=== PATIENT | female | born 1970 | race Caucasian/White ===

== ENCOUNTER 2021-09-19 16:07 | Outpatient (REF) | payer OTHER, SELFPAY ==
--- NOTE | ~2021-09-19 | MM_ITS ---
EXAMINATION: MM SCREENING DIGITAL BREAST TOMOSYNTHESIS, BILATERAL CLINICAL INFORMATION: Screening. Asymptomatic. The lifetime risk of breast cancer based on the Tyrer-Cuzick Model is 17%. COMPARISON: Mammography: 12/12/2018, 12/10/2017, 11/15/2016 TECHNIQUE: Digital breast tomosynthesis is performed in both the craniocaudal and mediolateral oblique views along with computer-aided detection (CAD). Synthesized 2D images are generated from the tomosynthesis. Additional left MLO view is provided. FINDINGS: There are scattered areas of fibroglandular density (ACR BI-RADS breast composition Category b). There is fine fibronodular parenchymal pattern with scattered stable asymmetries similar to prior exams. There is no developing density or interval mass or architectural abnormality. Mild bilateral breast asymmetry, larger on left, is a chronic finding. The axilla and skin contours are unremarkable. There are no significant changes. MM/MM tomosynthesis screening BI IMPRESSION: No mammographic evidence of malignancy. ASSESSMENT: BI-RADS 2: Benign RECOMMENDATION: Routine annual mammography screening. This patient's information was entered into a reminder system with a target due date for their next mammogram.
== END 2021-09-19 16:08 | disposition home or self-care (01) ==
LOC: HO.MAMMO 16:07
PROVIDERS: Visit Provider Internal Medicine
DX: Z12.31 Encounter for screening mammogram for malignant neoplasm of breast (principal)
CPT/HCPCS: 77063; 77067

== ENCOUNTER 2021-09-29 08:03 | Outpatient (REF) | payer OTHER, SELFPAY ==
[2021-09-29 08:19] LABS: MANUAL DIFF FLAG NO
[2021-09-29 09:02] LABS: Basophils Absolute Auto 0.1 X10*3/uL (0.0-0.2); Basophils Percent Auto 0.7 % (0-2); Eosinophils Absolute Auto 0.1 X10*3/uL (0.0-0.4); Eosinophils Percent Auto 1.7 % (0-4); Hematocrit 41.4 % (37.0-47.0); Hemoglobin 13.5 g/dl (12.0-16.0); Imm Gran Abs Auto 0.02 X10*3/uL (0.00-0.03); Imm Gran Pct Auto 0.3 % (0.0-0.4); Lymphocytes Absolute Auto 1.9 X10*3/uL (1.2-4.9); Lymphocytes Percent Auto 26.6 % (20-40); Mean Corpuscular HGB Conc 32.6 g/dl (31.0-35.0); Mean Corpuscular Hemoglobin 29.5 pg (27.0-33.0); Mean Corpuscular Volume 90.4 fL (80.0-98.0); Mean Platelet Volume 10.9 fL (9.4-12.3); Monocytes Absolute Auto 0.5 X10*3/uL (0.1-1.2); Monocytes Percent Auto 7.1 % (2-11); Neutrophils Absolute Auto 4.6 x10*3/uL (2.0-8.3); Neutrophils Percent Auto 63.6 % (45-73); Platelet Count 293 X10*3/uL (160-400); Red Blood Count 4.58 X10*6/uL (4.20-5.50); Red Cell Distribution Width 13.2 % (11.0-16.0); White Blood Count 7.2 X10*3/uL (4.8-10.8)
[2021-09-29 09:40] LABS: Alanine Aminotransferase 13 U/L (0-31); Albumin Level 4.2 g/dL (3.5-5.0); Alkaline Phosphatase 52 U/L (39-117); Anion Gap 14 (12-20); Aspartate Amino Transferase 15 U/L (5-31); Bilirubin Total 0.4 mg/dL (0.0-1.0); Blood Urea Nitrogen 18 mg/dL (9-16); Calcium 9.1 mg/dL (8.4-10.2); Carbon Dioxide 24 mmol/L (22-29); Chloride 108 mmol/L (96-108); Cholesterol 245 mg/dL; Estimated Glomerular Filt Rate > 60; Glucose Fasting 95 mg/dL (60-99); HDL Cholesterol 57 mg/dL; LDL Cholesterol Calculated 166 mg/dl; Potassium 4.8 mmol/L (3.3-5.1); Sodium 141 mmol/L (135-145); Triglycerides 113 mg/dL
== END 2021-09-29 08:04 | disposition home or self-care (01) ==
LOC: HO.LAB 08:03
PROVIDERS: PCP Internal Medicine; Visit Provider Internal Medicine
DX: Z00.00 Encounter for general adult medical examination without abnormal findings (principal)
CPT/HCPCS: 36415; 80053; 80061; 85025

== ENCOUNTER 2022-02-20 08:14 | Outpatient (REF) | payer OTHER, SELFPAY ==
[2022-02-20 09:14] LABS: Alanine Aminotransferase 10 U/L (0-31); Aspartate Amino Transferase 13 U/L (5-31); Cholesterol 212 mg/dL; HDL Cholesterol 52 mg/dL; LDL Cholesterol Calculated 138 mg/dl; Triglycerides 113 mg/dL
== END 2022-02-20 08:15 | disposition home or self-care (01) ==
LOC: HO.LAB 08:14
PROVIDERS: Visit Provider Internal Medicine
DX: E78.00 Pure hypercholesterolemia, unspecified (principal)
CPT/HCPCS: 36415; 80061; 84450; 84460

== ENCOUNTER 2022-08-17 07:17 | Outpatient (REF) | payer OTHER, SELFPAY ==
[2022-08-17 08:02] LABS: Cholesterol 232 mg/dL; HDL Cholesterol 58 mg/dL; LDL Cholesterol Calculated 152 mg/dl; Triglycerides 113 mg/dL
== END 2022-08-17 07:18 | disposition home or self-care (01) ==
LOC: HO.LAB 07:17
PROVIDERS: PCP Internal Medicine; Visit Provider Internal Medicine
DX: E78.00 Pure hypercholesterolemia, unspecified (principal)
CPT/HCPCS: 36415; 80061

== ENCOUNTER 2022-09-25 16:09 | Outpatient (REF) | payer OTHER, SELFPAY ==
--- NOTE | ~2022-09-25 | MM_ITS ---
EXAMINATION: MM SCREENING DIGITAL BREAST TOMOSYNTHESIS, BILATERAL CLINICAL INFORMATION: Screening. Asymptomatic. The lifetime risk of breast cancer based on the Tyrer-Cuzick Model is 16%. COMPARISON: Mammography: 09/19/2021, 12/12/2018, 12/10/2017, 11/15/2016 TECHNIQUE: Digital breast tomosynthesis is performed in both the craniocaudal and mediolateral oblique views along with computer-aided detection (CAD). Synthesized 2D images are generated from the tomosynthesis. FINDINGS: There are scattered areas of fibroglandular density (ACR BI-RADS breast composition Category b). There is a fibronodular parenchymal pattern with scattered bilateral parenchymal asymmetries similar to prior studies. There are no abnormal calcifications. There is some chronic benign mild duct ectasia anterior left breast. The bilateral axilla and skin contours are unremarkable. Right breast shows no significant mass or architectural abnormality or developing density. Left MLO view has asymmetric density central breast along posterior nipple line which is believed to represent probable summation artifact on tomography. Patient will be recalled to confirm with additional views. MM/MM tomosynthesis screening BI IMPRESSION: Left: -Asymmetric density mid breast on MLO view, likely incidental summation artifact. Right: -No mammographic evidence of malignancy. ASSESSMENT: BI-RADS 0: Incomplete - Need Additional Imaging Evaluation RECOMMENDATION: 1. Additional views left breast (spot MLO, standard ML). 2. Targeted ultrasound if warranted after review of the additional views. 3. Radiology department staff will contact the patient for additional imaging. This patient's information was entered into a reminder system with a target due date for their next mammogram.
== END 2022-09-25 16:10 | disposition home or self-care (01) ==
LOC: HO.MAMMO 16:09
PROVIDERS: Visit Provider Internal Medicine
DX: Z12.31 Encounter for screening mammogram for malignant neoplasm of breast (principal)
CPT/HCPCS: 77063; 77067

== ENCOUNTER 2022-09-29 08:34 | Outpatient (REF) | payer OTHER, SELFPAY ==
--- NOTE | ~2022-09-29 | MM_ITS ---
EXAMINATION: MM DIAGNOSTIC DIGITAL BREAST TOMOSYNTHESIS, LEFT US BREAST, TARGETED, LEFT CLINICAL INFORMATION: Left breast density. COMPARISON: Mammography: 09/25/2022 and studies dating back to 11/03/2015. TECHNIQUE: Digital breast tomosynthesis is performed. 2D images are generated from the tomosynthesis. The following views are obtained: Spot compression views in mediolateral oblique projection and 90 degree mediolateral views. Targeted left breast ultrasound. FINDINGS: MAMMOGRAM: There are scattered areas of fibroglandular density (ACR BI-RADS breast composition Category b). The additional views compress out and 90 degree mediolateral view changes the appearance a little with no definite spiculated mass identified. ULTRASOUND: Targeted ultrasound evaluation of the left breast did not demonstrate any abnormal cystic or solid masses. No region of abnormal distal sound shadowing or edematous change within the parenchyma is identified. Results are discussed with the patient at time of visit. MM/MM tomosynthesis added views L IMPRESSION: Additional mammographic imaging demonstrates improvement in appearance of left breast density which appears to be related to superimposition of fibroglandular tissue. No ultrasound abnormality appreciated. Recommend 6 month follow-up left breast mammography to ensure stability. ASSESSMENT: BI-RADS 3: Probably Benign RECOMMENDATION: Diagnostic mammography in 6 months. This patient's information was entered into a reminder system with a target due date for their next mammogram.
== END 2022-09-29 08:35 | disposition home or self-care (01) ==
LOC: HO.MAMMO 08:34
PROVIDERS: Visit Provider Internal Medicine
DX: R92.2 Inconclusive mammogram (principal)
CPT/HCPCS: 76642; 77061; 77065

== ENCOUNTER 2023-03-30 14:20 | Outpatient (REF) | payer OTHER, SELFPAY | END 2023-03-30 14:21 | disposition home or self-care (01) | LOC: HO.MAMMO 14:20 | PROVIDERS: PCP Internal Medicine; Visit Provider Internal Medicine | DX: R92.2 Inconclusive mammogram (principal) | CPT/HCPCS: 77061; 77065 ==

== ENCOUNTER → 2023-03-30 14:30 | Outpatient (BNV) | payer OTHER, SELFPAY | PROVIDERS: PCP Internal Medicine; Visit Provider Radiology Diagnostic Radiology | DX: R92.322 Mammographic fibroglandular density, left breast (principal) | CPT/HCPCS: 77061; 77065 ==

== ENCOUNTER 2023-09-27 15:35 | Outpatient (REF) | payer OTHER, SELFPAY ==
--- NOTE | ~2023-09-27 | MM_ITS ---
EXAMINATION: MM SCREENING DIGITAL BREAST TOMOSYNTHESIS, BILATERAL CLINICAL INFORMATION: Screening. Asymptomatic. COMPARISON: Mammography: 03/30/2023, 09/29/2022, 09/25/2022, 09/19/2021, 12/12/2018. Ultrasound left breast 09/29/2022. TECHNIQUE: Digital breast tomosynthesis is performed in both the craniocaudal and mediolateral oblique views along with computer-aided detection (CAD). Synthesized 2D images are generated from the tomosynthesis. FINDINGS: There are scattered areas of fibroglandular density (ACR BI-RADS breast composition Category b). There are no suspicious masses, suspicious grouped calcifications, or areas of architectural distortion in either breast. There is fine fibronodular parenchymal pattern with scattered stable asymmetries similar to numerous prior exams. There are no skin or axillary abnormalities. MM/MM tomosynthesis screening BI IMPRESSION: No mammographic evidence of malignancy. No changes. ASSESSMENT: BI-RADS BI-RADS 2 - Benign Findings. RECOMMENDATION: Routine annual mammography screening. 1 year F/U This examination should not preclude the clinical evaluation of a suspicious palpable abnormality. This patient's information was entered into a reminder system with a target due date for their next mammogram.
== END 2023-09-27 15:36 | disposition home or self-care (01) ==
LOC: HO.MAMMO 15:35
PROVIDERS: PCP Internal Medicine; Visit Provider Internal Medicine
DX: Z12.31 Encounter for screening mammogram for malignant neoplasm of breast (principal)
CPT/HCPCS: 77063; 77067

== ENCOUNTER → 2023-09-27 16:00 | Outpatient (BNV) | payer OTHER, SELFPAY | PROVIDERS: PCP Internal Medicine; Visit Provider Radiology Diagnostic Radiology | DX: Z12.31 Encounter for screening mammogram for malignant neoplasm of breast (principal) | CPT/HCPCS: 77063; 77067 ==

== ENCOUNTER 2023-12-22 10:57 | Emergency (ER) | payer OTHER, SELFPAY ==
--- NOTE | ~2023-12-22 | CT_ITS ---
EXAMINATION: CT abdomen pelvis wo IV con CLINICAL INFORMATION: Reason for Exam lower abd pain, r/o perforated viscus, diverticult COMPARISON: Prior CT scan from 2019 TECHNIQUE: Multidetector volumetric imaging was performed from the superior aspect of the liver through the pubic symphysis noncontrast CT Sagittal and coronal reformatted images were obtained on the technologist's workstation. This CT examination was performed using dose optimization techniques as appropriate, variously including the following: *Automated exposure control *Adjustment of mA and/or kV according to patient size (this includes techniques or standardized protocols for targeted exams where dose is matched to indication/reason for exam; i.e. extremities or head) *Use of iterative reconstruction technique DLP: 941 mGy-cm FINDINGS: LOWER THORAX: Included lung bases are clear. HEPATOBILIARY: Heterogeneous liver texture, hypodense area in the posterior segment right lobe 7 x 4.8 cm, not well evaluated on this noncontrast CT newly found on today's exam, although could be asymmetric fat deposition, cannot rule out liver mass, would require correlation with follow-up advanced imaging. GALLBLADDER: Gallbladder unremarkable. SPLEEN: Spleen is normal in size. PANCREAS: No focal mass or ductal dilatation. STOMACH AND GASTROINTESTINAL TRACT: Stomach is grossly unremarkable. There is fat stranding around the sigmoid colon left lower quadrants with underlying diverticula, this pattern is most consistent with acute diverticulitis. No CT evidence of complication, no abscess,. No CT evidence of appendicitis. ADRENALS: No adrenal nodules. KIDNEYS/URETERS: There is a 3 mm nonobstructing stone left kidney. No hydronephrosis. URINARY BLADDER: Partially decompressed. PELVIC VISCERA: Unremarkable PERITONEUM: No free air or fluid. LYMPH NODES: No lymphadenopathy. VASCULAR:Abdominal aorta normal in size, no aneurysm found. BONES, ABDOMINAL WALL AND SOFT TISSUES: Age-appropriate changes of the spine and skeletal system, no destructive osteolytic or osteosclerotic bone lesion found CT/CT abdomen pelvis wo IV con IMPRESSION: 1. Acute diverticulitis. There is fat stranding around the sigmoid colon left lower quadrant with underlying diverticula, this pattern is most consistent with acute diverticulitis. No CT evidence of complication, no abscess. 2. Heterogeneous liver texture, newly found hypodense area in the posterior segment right lobe 7 x 4.8 cm, not well evaluated on this noncontrast CT, although could be asymmetric fat deposition, cannot rule out liver mass, would require correlation with follow-up advanced imaging, ultrasound and/or MRI abdomen pre and postcontrast recommended. 3. Nonobstructing 3 mm stone left kidney.
[2023-12-22 11:25] VITALS: BP 162/74; PULSE 69; RESP 16; TEMP 36.5; O2SAT 96; BMI 43.2
--- NOTE | 2023-12-22 11:25 | ED.ABDPAIN ---
HPI - Abdominal Pain General Chief Complaint: Abdominal Pain Stated Complaint: diverticulitis flare up Time Seen by Provider: 12/22/23 11:24 Source: patient Mode of arrival: ambulatory Limitations: no limitations History of Present Illness ED Provider: DR. Ellison HPI narrative: 53-year-old female came in for evaluation lower abdominal pain started 2 days ago. 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 Related Data Previous Rx's ?Medication ?Instructions ?Recorded amoxicillin 875 mg-potassium 1 tab PO BID #20 tabs 12/22/23 clavulanate 125 mg tablet Allergies Allergy/AdvReac Type Severity Reaction Status Date / Time No Known Allergies Allergy Verified 12/22/23 11:26 [No Known Allergies*] Review of Systems Review of Systems All other systems are reviewed and are negative Constitutional: Reports as per HPI and Reports no additional constitutional complaints Eyes: Reports as per HPI and Reports no additional eye complaints Reports system reviewed and no additional complaints, except as documented Cardiovascular: Reports as per HPI and Reports no additional cardiovascular complaints Respiratory: Reports as per HPI and Reports no additional respiratory complaints Gastrointestinal: Reports as per HPI and Reports no additional gastrointestinal complaints Genitourinary: Reports no additional female genitourinary complaints Musculoskeletal: Reports no additional musculoskeletal complaints Skin/Breast: Reports system reviewed and no additional complaints, except as docu Psychiatric: Reports no additional psychiatric complaints Endocrine: Reports no additional endocrine complaints Hematologic/Lymphatic: Reports no additional hematologic/lymphatic complaints Allergic/Immunologic: Reports no additional allergic/immunologic complaints Reports system reviewed and no additional complaints, except as documented and Reports Abnormal speech present PMFSH Social History Social History Advance Directives: No Advance Directives Information Provided: Yes Physical Exam ED Vital Signs: Vital Signs - 24 hr 12/22/23 11:25 12/22/23 12:23 Temperature 97.7 F 98.6 F Pulse Rate 69 60 Respiratory Rate 16 17 Blood Pressure 162/74 H 127/82 Pulse Oximetry 96 98 Oxygen Delivery Method Room Air BMI result Body Mass Index 43.2 Vital signs have been reviewed and appear to be correct. Blood pressure elevated. Heart rate normal. Respiratory rate normal. Temperature normal. Oxygen saturation normal. Appearance: Alert. Oriented X3. No acute distress. Head: Normal external exam. Normocephalic. Atraumatic. No Perez signs noted. No raccoon eyes noted Eyes: PERRLA. EOMI. Conjunctiva and sclera normal. Eyelids normal. ENT: TM's Normal. Pharynx normal. Uvula midline. Moist mucous membranes. No trismus noted. No drooling noted. No muffled voice noted. Neck: Normal inspection. Neck supple. FROM. No adenopathy. Thyroid Normal. No meningeal signs. No neck mass noted. CVS: Normal heart rate and rhythm. Heart sound normal. No murmurs noted. Pulses normal throughout. Respiratory: No respiratory distress. Painless inspiration. Breath sounds normal. No wheezes/rales/rhonchi noted. Chest nontender. No accessory muscle usage noted or decreased air movement noted. Abdomen: Soft, mild lower abdominal tenderness, no guarding, no rebound tenderness, right side more than left. No organomegaly noted. No visible injury noted. Back: No CVA tenderness. Full range of motion noted. Skin: Skin warm and dry. Normal skin color. Normal skin turgor. No rashes/lesions/lacerations noted. Extremities: No lower extremity edema. Extremities exhibit normal range of motion. Extremities nontender. Neuro: Oriented X 3. Cranial nerve exam: II-XII are grossly intact No motor deficit. No sensory deficit. Reflexes normal. Course Reevaluation(s) Reevaluation #1: Abdominal pain normal WBCs CT reveals sigmoid diverticulitis, incidental right hepatic mass that needs further evaluation by PCP the findings were discussed with the patient. Start on Augmentin for outpatient treatment. Diverticular disease diet was provided to the patient. Time: 13:00 Medical Decision Making Differential Diagnosis Differential Diagnoses: The differential diagnosis associated with the presentation includes (Pancreatitis, cholecystitis, colitis, diverticulitis, acute appendicitis, gastritis, pyelonephritis, , electrolyte derangement, severe anemia.) Admission/Observation Consideration of admission/observation: Escalation of care including admission/observation considered Lab Data MDM Lab Attestation statement: I reviewed the patient's lab results. 12/22/23 11:36 12/22/23 11:36 Labs: Lab Results 12/22/23 Range/Units 11:36 WBC 9.2 (4.8-10.8) X10*3/uL RBC 4.58 (4.20-5.50) X10*6/uL Hgb 13.5 (12.0-16.0) g/dl Hct 40.3 (37.0-47.0) % MCV 88.0 (80.0-98.0) fL MCH 29.5 (27.0-33.0) pg MCHC 33.5 (31.0-35.0) g/dl RDW 13.1 (11.0-16.0) % Plt Count 282 (160-400) X10*3/uL MPV 10.4 (9.4-12.3) fL Immature Gran % (Auto) 0.2 (0.0-0.4) % Neut % (Auto) 58.3 (45-73) % Lymph % (Auto) 31.7 (20-40) % Zapata % (Auto) 6.3 (2-11) % Eos % (Auto) 3.0 (0-4) % Baso % (Auto) 0.5 (0-2) % Lymph # (Auto) 2.9 (1.2-4.9) X10*3/uL Zapata # (Auto) 0.6 (0.1-1.2) X10*3/uL Eos # (Auto) 0.3 (0.0-0.4) X10*3/uL Baso # (Auto) 0.1 (0.0-0.2) X10*3/uL Abs Immat Gran (auto) 0.02 (0.00-0.03) X10*3/uL Absolute Neuts (auto) 5.4 (2.0-8.3) x10*3/uL Absolute Nucleated RBC 0.000 (0.0-0.012) X10*3/uL Nucleated RBC % (auto) 0.0 (0.0-0.2) /100WBC Sodium 140 (135-145) mmol/L Potassium 4.3 (3.3-5.1) mmol/L Chloride 106 (96-108) mmol/L Carbon Dioxide 25 (22-29) mmol/L Anion Gap 13 (12-20) BUN 16 (9-16) mg/dL Creatinine 0.74 (0.5-1.4) mg/dL Estim Creat Clear Calc 119.4 Estimated GFR > 60 Random Glucose 96 (60-115) mg/dL Calcium 9.6 (8.4-10.2) mg/dL Total Bilirubin 0.3 (0.0-1.0) mg/dL Direct Bilirubin 0.1 (0.0-0.5) mg/dL AST 17 (5-31) U/L ALT 15 (0-31) U/L Alkaline Phosphatase 56 (39-117) U/L Total Protein 7.3 (6.5-8.0) g/dL Albumin 4.1 (3.5-5.0) g/dL Lipase 18 (8-78) U/L Independent Interpretation I performed an independent interpretation of an: CT Scan (Abdomen pelvis:1. Acute diverticulitis. There is fat stranding around the sigmoid colon left lower quadrant with underlying diverticula, this pattern is most consistent with acute diverticulitis. No CT evidence of complication, no abscess. 2. Heterogeneous liver texture, newly found hypodense ar) Radiology Impression Discussion of test interpretation with radiology: I have reviewed the radiologist's reading. Chronic Conditions Patient?s care impacted by: Other (Diverticular disease) Medications Administered Discontinued Medications Generic Name Dose Route Start Last Admin Trade Name Freq PRN Reason Stop Dose Admin Sodium Chloride 1,000 mls @ 999 mls/hr 12/22/23 11:29 12/22/23 11:54 Ns IV 12/22/23 12:29 999 mls/hr .Q1H1M ONE Administration Piperacillin Sod/Tazobactam 100 mls @ 200 mls/hr 12/22/23 11:42 12/22/23 12:24 Sod 4.5 gm/ Sodium Chloride IV 12/22/23 12:11 200 mls/hr ONCE ONE Administration Discharge Plan Discharge Clinical Impression: Diverticulitis, Liver mass, right lobe, Liver mass Patient Disposition: Home, Self-Care Instructions: Diverticulitis (ED), Diverticulitis Diet (ED) Additional Instructions: Need to follow-up with PCP for further evaluation of incidental mass found on your right side of your liver you will need outpatient ultrasound and abdominal MRI. Take ibuprofen 200 mg every 6 hours if needed for pain. Prescriptions: New amoxicillin-pot clavulanate 875-125 mg tablet 1 tab PO BID Qty: 20 0RF Referrals: Mikael Valencia MD [Primary Care Provider] - Print Language: Frisian
[2023-12-22 11:42] LABS: MANUAL DIFF FLAG NO
[2023-12-22 11:44] LABS: Basophils Absolute Auto 0.1 X10*3/uL (0.0-0.2); Basophils Percent Auto 0.5 % (0-2); Eosinophils Absolute Auto 0.3 X10*3/uL (0.0-0.4); Hematocrit 40.3 % (37.0-47.0); Hemoglobin 13.5 g/dl (12.0-16.0); Imm Gran Abs Auto 0.02 X10*3/uL (0.00-0.03); Imm Gran Pct Auto 0.2 % (0.0-0.4); Lymphocytes Absolute Auto 2.9 X10*3/uL (1.2-4.9); Lymphocytes Percent Auto 31.7 % (20-40); Mean Corpuscular HGB Conc 33.5 g/dl (31.0-35.0); Mean Corpuscular Hemoglobin 29.5 pg (27.0-33.0); Mean Platelet Volume 10.4 fL (9.4-12.3); Monocytes Absolute Auto 0.6 X10*3/uL (0.1-1.2); Monocytes Percent Auto 6.3 % (2-11); Neutrophils Absolute Auto 5.4 x10*3/uL (2.0-8.3); Neutrophils Percent Auto 58.3 % (45-73); Platelet Count 282 X10*3/uL (160-400); Red Blood Count 4.58 X10*6/uL (4.20-5.50); Red Cell Distribution Width 13.1 % (11.0-16.0); White Blood Count 9.2 X10*3/uL (4.8-10.8)
[2023-12-22] MEDS: 0.9 % Sodium Chloride 1,000 ML 999 ML IV (11:54)
[2023-12-22 12:02] LABS: Alanine Aminotransferase 15 U/L (0-31); Albumin Level 4.1 g/dL (3.5-5.0); Alkaline Phosphatase 56 U/L (39-117); Anion Gap 13 (12-20); Aspartate Amino Transferase 17 U/L (5-31); Bilirubin Direct 0.1 mg/dL (0.0-0.5); Bilirubin Total 0.3 mg/dL (0.0-1.0); Blood Urea Nitrogen 16 mg/dL (9-16); Calcium 9.6 mg/dL (8.4-10.2); Carbon Dioxide 25 mmol/L (22-29); Chloride 106 mmol/L (96-108); Creatinine Clr Calc Pharmacy 119.4; Estimated Glomerular Filt Rate > 60; Glucose Random 96 mg/dL (60-115); Lipase 18 U/L (8-78); Potassium 4.3 mmol/L (3.3-5.1); Sodium 140 mmol/L (135-145); Total Protein 7.3 g/dL (6.5-8.0)
[2023-12-22 12:23] VITALS: BP 127/82; PULSE 60; RESP 17; TEMP 37; O2SAT 98
[2023-12-22] MEDS: Piperacillin Sodium/Tazobactam 4.5 GM in 0.9 % Sodium Chloride 100 ML IV (12:24)
[2023-12-22 13:43] VITALS: BP 127/77; PULSE 55; RESP 16; TEMP 36.8; O2SAT 99
[2023-12-22 13:52] VITALS: BP 127/77; PULSE 55; RESP 16; TEMP 36.8; O2SAT 99
== END 2023-12-22 13:53 | disposition home or self-care (01) ==
PROVIDERS: Emergency Provider Emergency Medicine; PCP Internal Medicine
DX: K57.32 Diverticulitis of large intestine without perforation or abscess without bleeding (principal); R10.30 Lower abdominal pain, unspecified; R16.0 Hepatomegaly, not elsewhere classified
CPT/HCPCS: 36415; 74176; 80048; 80076; 83690; 85025; 87040; 96361; 96365; 96366; 99283; 99284; J2543

== ENCOUNTER 2023-12-31 07:22 | Outpatient (REF) | payer OTHER, SELFPAY ==
[2023-12-31 07:33] LABS: MANUAL DIFF FLAG NO
[2023-12-31 07:41] LABS: Basophils Absolute Auto 0.1 X10*3/uL (0.0-0.2); Basophils Percent Auto 0.7 % (0-2); Eosinophils Absolute Auto 0.3 X10*3/uL (0.0-0.4); Eosinophils Percent Auto 3.5 % (0-4); Hematocrit 41.4 % (37.0-47.0); Hemoglobin 13.8 g/dl (12.0-16.0); Imm Gran Abs Auto 0.02 X10*3/uL (0.00-0.03); Imm Gran Pct Auto 0.3 % (0.0-0.4); Lymphocytes Absolute Auto 3.1 X10*3/uL (1.2-4.9); Lymphocytes Percent Auto 41.6 % (20-40); Mean Corpuscular HGB Conc 33.3 g/dl (31.0-35.0); Mean Corpuscular Hemoglobin 29.2 pg (27.0-33.0); Mean Corpuscular Volume 87.7 fL (80.0-98.0); Mean Platelet Volume 10.2 fL (9.4-12.3); Monocytes Absolute Auto 0.4 X10*3/uL (0.1-1.2); Neutrophils Absolute Auto 3.5 x10*3/uL (2.0-8.3); Neutrophils Percent Auto 47.9 % (45-73); Platelet Count 319 X10*3/uL (160-400); Red Blood Count 4.72 X10*6/uL (4.20-5.50); Red Cell Distribution Width 12.8 % (11.0-16.0); White Blood Count 7.4 X10*3/uL (4.8-10.8)
[2023-12-31 08:00] LABS: Alanine Aminotransferase 17 U/L (0-31); Albumin Level 4.2 g/dL (3.5-5.0); Alkaline Phosphatase 57 U/L (39-117); Anion Gap 12 (12-20); Aspartate Amino Transferase 17 U/L (5-31); Bilirubin Total 0.3 mg/dL (0.0-1.0); Blood Urea Nitrogen 15 mg/dL (9-16); Calcium 9.4 mg/dL (8.4-10.2); Carbon Dioxide 25 mmol/L (22-29); Chloride 108 mmol/L (96-108); Cholesterol 253 mg/dL (<200); Estimated Glomerular Filt Rate > 60; Glucose Fasting 105 mg/dL (60-99); HDL Cholesterol 52 mg/dL (>40); LDL Cholesterol Calculated 167 mg/dL (<100); Sodium 141 mmol/L (135-145); Total Protein 7.3 g/dL (6.5-8.0); Triglycerides 173 mg/dL (<150)
[2023-12-31 09:15] LABS: Appearance Urine Cloudy; Color Urine Yellow; Glucose Urine UA Negative (Negative); Leukocyte Esterase Urine Negative (Negative); Nitrite Urine Negative (Negative); Specific Gravity - Urine 1.025 (1.005-1.025); Urine Blood Negative (Negative); Urine Ketones Negative (Negative); Urine Protein Negative (Neg-Trace)
== END 2023-12-31 07:23 | disposition home or self-care (01) ==
LOC: HO.LAB 07:22
PROVIDERS: PCP Internal Medicine; Visit Provider Internal Medicine
DX: E78.00 Pure hypercholesterolemia, unspecified (principal); K21.9 Gastro-esophageal reflux disease without esophagitis; Z87.442 Personal history of urinary calculi
CPT/HCPCS: 36415; 80053; 80061; 81003; 85025

== ENCOUNTER 2024-01-04 09:25 | Outpatient (AMB) | payer OTHER, SELFPAY ==
--- NOTE | 2024-01-04 09:36 | MHC.OFFVIS ---
Vital Signs 01/04/24 09:40 Height 5 ft 6 in Weight 265 lb BMI 42.8 BP 135/72 Blood Pressure Location Lt brachial Position Sitting Pulse 80 Intake Visit Reasons: Colonoscopy Screening Intake Note: Patient new consult for Diverticulitis and pre Colonoscopy screening. Patient cc: acid refllex and burning sensation. [employer] Required: No Accompanied by: Self / Same As Patient Allergies No Known Allergies [No Known Allergies*] Allergy (Verified 01/04/24 09:36) Medication List - Last Reconciled 01/04/24 by Henna Flood, [facility]- amoxicillin-pot clavulanate 875-125 mg 1 tab PO BID atorvastatin 20 mg PO BEDTIME omeprazole 20 mg PO DAILY HPI HPI Colonoscopy Screening: Details: 53 year old? female here today for pre colonoscopy screening.? Patient was sent to us by her PCP.? This is her first colonoscopy screening.? Patient denies any gastrointestinal symptoms in the past or at present.? However patient does admit to acid reflux and takes omeprazole almost every day. Recently patient was seen in the ER for diverticulitis. Patient denies any abdominal pain or discomfort today. Reports that she is moving his bowels well without any issues. During her visit in the ER incidental finding of hypodense mass in the liver. Patient is being sent for MRI and is waiting to book the appointment. Family history of CRC, maternal grandmother was diagnosed with rectal cancer.? Denies history of difficulty with sedation or anesthesia in the past.? Negative for history of sleep apnea.? Denies any history of cardiac, renal, pulmonary, or hepatic disease.?? No history of infectious? diseases like hepatitis A, B, C, HIV or tuberculosis.? Patient is not on any anticoagulation PFSH Surgical History (Updated 01/04/24 @ 09:38 by Kelli Cohen) Hx of knee surgery Hx of section Social History (Updated 01/04/24 @ 09:37 by Kelli Cohen) Household Members: Family Alcohol intake: current Alcohol intake frequency: holidays/special occasions only Patient Tobacco Use Status: Never used Tobacco Review of Systems Const Denies weight gain and Denies weight loss ENT Reports no additional complaints, Denies dysphagia and Denies odynophagia Card Reports no additional complaints Resp Reports no additional complaints GI Denies abdominal pain, Denies belching, Denies melena, Denies bloating, Denies change in bowel habits, Denies dysphagia, Denies excessive flatus, Denies dyspepsia, Denies heartburn, Denies diarrhea, Denies loose stools, Denies nausea, Denies odynophagia and Denies vomiting Musc Reports no additional complaints Neuro Reports no additional complaints Psych Reports no additional complaints Endo Reports no additional complaints Physical Exam Const General: healthy appearing, no acute distress and well developed Nutritional Appearance: well nourished Orientation/consciousness: patient oriented x3 Resp Effort & Inspection: normal respiratory effort, able to speak in complete sentences, no tracheal deviation and symmetric chest movement Auscultation: clear to auscultation bilaterally Cardio Rate: regular rate GI Inspection: Yes normal to inspection and No distended Palpation (GI): Soft to palpation, not firm, nontender and No hepatosplenomegaly present Auscultation: normal bowel sounds General: Yes no CVA tenderness Back/Spine/Pelvis Back: no CVA tenderness Skin General skin exam: elasticity normal, turgor normal and dry skin Neuro General: patient oriented x3 Psych Appearance: grossly normal Mental Status: mental status grossly normal Assessment & Plan Assessment & Plan (1) Screen for colon cancer: Code(s): Z12.11 - Encounter for screening for malignant neoplasm of colon (2) GERD (gastroesophageal reflux disease): Code(s): K21.9 - Gastro-esophageal reflux disease without esophagitis Qualifiers: Esophagitis presence: esophagitis presence not specified Qualified Code(s): K21.9 - Gastro-esophageal reflux disease without esophagitis (3) History of diverticulitis of colon: Code(s): Z87.19 - Personal history of other diseases of the digestive system Plan Patient denies any cardiac or respiratory symptoms.? Patient will continue with omeprazole. Avoid dietary triggers late night snacking. Staying upright for minimum 3 hours after meals discussed with patient. Patient will be sent for upper endoscopy to rule out gastritis, duodenitis, esophagitis, gastric or peptic ulcer, Cabrera's. Denies any issues with anesthesia in the past.? Denies any history of sleep apnea.? No history infectious diseases in the past or present.? Not on any anticoagulation therapy.? Family history of CRC..? Patient denies melena, hematochezia, unintentional weight loss or ribbon like stools.? Discussed at length the pre-procedure,? prep, diet & medications as well as what to expect prior, during and after the procedure.?? Stressed the importance of good bowel prep.? Recommended the use of Vaseline or Calmoseptine OTC & baby wipes with bowel movements to promote comfort.? ?Patient verbalizes understanding and agrees to plan of care.? She was given the opportunity to ask questions and all questions answered.? We will see her after the procedure.? Medications: New bisacodyl (Dulcolax (bisacodyl)) take 4 tabs at noon the day before your colonoscopy 20 mg (4 x 5 mg) PO ONCE 1 day 4 tabs 0RF Z12.11 - Encounter for screening for malignant neoplasm of colon polyethylene glycol 3350 (Miralax) As directed by gastroenterology department at [facility] 238 grams PO ONCE 238 grams 0RF Z12.11 - Encounter for screening for malignant neoplasm of colon omeprazole 20 mg PO DAILY 90 caps 3RF Coding Level of Care Code New Pt Level 3 (88376) Diagnoses Screen for colon cancer Z12.11 Gastroesophageal reflux disease, unspecified whether esophagitis present K21.9 Esophagitis presence: esophagitis presence not specified History of diverticulitis of colon Z87.19 Time Spent (min) 40 Comment 30 minutes spent with patient and additional 10 minutes spent reviewing her records
[2024-01-04 09:40] VITALS: BP 135/72; PULSE 80; BMI 42.8
== END 2024-01-04 10:24 | disposition home or self-care (01) ==
PROVIDERS: PCP Internal Medicine; Visit Provider Nurse Practitioner Family
DX: K21.9 Gastro-esophageal reflux disease without esophagitis (principal); Z01.818 Encounter for other preprocedural examination; Z12.11 Encounter for screening for malignant neoplasm of colon; Z87.19 Personal history of other diseases of the digestive system
CPT/HCPCS: 99203

== ENCOUNTER → 2024-01-04 09:25 | Outpatient (BNVA) | payer OTHER, SELFPAY | PROVIDERS: PCP Internal Medicine; Visit Provider Nurse Practitioner Family ==

== ENCOUNTER 2024-03-04 13:55 | Outpatient (REF) | payer OTHER, SELFPAY ==
--- NOTE | ~2024-03-04 | MR_ITS ---
EXAMINATION: MR ABDOMEN WITHOUT AND WITH CONTRAST CLINICAL INFORMATION: Liver lesion. COMPARISON: CT abdomen/pelvis December 22, 2023 TECHNIQUE: MR abdomen was performed without and with use of 10 mL intravenous Gadavist gadolinium contrast. Postcontrast images are performed in multiphase dynamic sequences. Imaging was performed in 3 planes. FINDINGS: LUNG BASES: No pleural or pericardial effusion. LIVER, GALLBLADDER, AND BILIARY TREE: Loss of signal on opposed phase imaging compatible with hepatic steatosis. 9 mm T2 hyperintense benign-appearing hepatic cyst, no imaging follow-up recommended. The liver measures 18.5 cm in sagittal dimension. Previously demonstrated 7.0 x 4.8 cm area of hypoattenuation in the posterior right lobe on CT corresponds to an area of asymmetric fat deposition on MRI. There is no focal space-occupying lesion or mass effect. There is no abnormal enhancement. No intra or extrahepatic biliary duct dilatation. The gallbladder is unremarkable with no evidence of gallbladder wall thickening, or obvious pericholecystic inflammatory changes. PANCREAS: No ductal dilatation. SPLEEN: Not enlarged. ADRENAL GLANDS: No adrenal mass. KIDNEYS AND URETERS: The kidneys are normal in size, shape, and enhance symmetrically. No hydronephrosis. No perinephric stranding. GASTROINTESTINAL TRACT: No bowel obstruction. Diverticular disease of the descending and sigmoid colon. No ascites or fluid collection. LYMPH NODES: No bulky lymphadenopathy. VASCULAR: Normal caliber abdominal aorta. MR/MR abdomen wo/w con IMPRESSION: Hepatic steatosis. Electronically signed by: Orlando Suarez MD 03/21/2024 12:27 PM EDT
[2024-03-04] MEDS: gadobutroL 10 ML VIAL IVPUSH (14:43)
== END 2024-03-04 13:56 | disposition home or self-care (01) ==
LOC: HO.MRI 13:55
PROVIDERS: PCP Internal Medicine; Visit Provider Internal Medicine
DX: K76.9 Liver disease, unspecified (principal)
CPT/HCPCS: 74183; A9585

== ENCOUNTER 2024-04-21 11:06 | Outpatient (AMB) | payer OTHER, SELFPAY ==
--- NOTE | 2024-04-21 11:42 | AM.OFFWIN_ITS ---
Intake Vital Signs 04/21/24 11:49 Weight 266 lb BP 122/80 Blood Pressure Location Lt brachial Position Sitting Pulse 74 Pulse Source Pulse Oximeter Temp 97.9 F Temp Source Oral Pulse Oximetry (%) 98 Oxygen Delivery Method Room Air Intake Visit Reasons: EP-UTI Intake Note: Patient here frequent urination, burning which has been present for about 4 d ays. She is currently taking AZO Patient Tobacco Use Status: Never used Tobacco Allergies No Known Allergies [No Known Allergies*] Allergy (Verified 04/21/24 11:48) Do you need a note to return to daycare/school/sports/work: No HPI HPI Comments 2 History of Present Illness Details Patient is a 53-year-old female complaining of 4 days of burning with urination, increased frequency of urination and increased urgency. She has been taking azo for symptomatic relief. She denies any fevers, low back pain or blood in her urine. PFSH Surgical History (Updated 01/04/24 @ 09:38 by Kelli Cohen) Hx of knee surgery Hx of section Social History (Updated 01/04/24 @ 09:37 by Kelli Cohen) Household Members: Family Alcohol intake: current Alcohol intake frequency: holidays/special occasions only Patient Tobacco Use Status: Never used Tobacco Review of Systems Const All systems reviewed & are unremarkable except as noted in HPI and below Physical Exam Vital Signs: Last Vital Signs Temp 97.9 F 04/21/24 11:49 Pulse 74 04/21/24 11:49 BP 122/80 04/21/24 11:49 Pulse Ox 98 04/21/24 11:49 Oxygen Delivery Method Room Air 04/21/24 11:49 Const General: cooperative, healthy appearing, comfortable, no acute distress and well developed Orientation/consciousness: patient oriented x3 Limitations: no limitations HEENT Head: Yes normal to inspection Ears: hearing grossly normal bilaterally General nose exam: Normal external nose present Face and sinus: Yes normal facial exam Eyes General: appearance normal, both eyes and all related structures Neck Neck: Yes normal visual inspection and Yes full ROM Resp Effort & Inspection: normal respiratory effort and able to speak in complete sentences Skin General skin exam: no rashes or lesions noted Neuro General: patient oriented x3 Extrem General: Yes normal to inspection Assessment & Plan Assessment & Plan (1) UTI (urinary tract infection): Code(s): N39.0 - Urinary tract infection, site not specified Qualifiers: Urinary tract infection type: acute cystitis Hematuria presence: without hematuria Qualified Code(s): N30.00 - Acute cystitis without hematuria Plan: UA unable to be run in office due to machine difficulty so we will send a culture. Treating patient based on her symptoms, sent cefuroxime to patient's pharmacy. Plan See above Orders: Orders Urine Culture Today N39.0 - Urinary tract infection, site not specified Medications: New cefuroxime axetil 500 mg PO Q12H 10 tabs 0RF Discontinued omeprazole Discontinued Reason: Entered in error 20 mg PO DAILY 90 caps 3RF Coding Level of Care Code New Pt Level 3 (22651) Diagnoses Acute cystitis without hematuria N30.00 Urinary tract infection type: acute cystitis Hematuria presence: without hematuria
[2024-04-21 11:49] VITALS: BP 122/80; PULSE 74; TEMP 36.6; O2SAT 98
== END 2024-04-21 12:13 | disposition home or self-care (01) ==
PROVIDERS: PCP Internal Medicine; Visit Provider Physician Assistant
DX: N30.00 Acute cystitis without hematuria (principal)

== ENCOUNTER 2024-04-21 11:06 | Outpatient (REF) | payer OTHER, SELFPAY | END 2024-04-21 11:07 | disposition home or self-care (01) | LOC: HO.LAB 11:06 | PROVIDERS: PCP Internal Medicine | DX: N39.0 Urinary tract infection, site not specified (principal); B95.7 Other staphylococcus as the cause of diseases classified elsewhere | CPT/HCPCS: 87086; 87088; 87186 ==

== ENCOUNTER 2024-06-20 07:31 | Day surgery (SDC) | payer OTHER, SELFPAY ==
[2024-06-17 11:43] VITALS: BMI 42.8
--- NOTE | 2024-06-19 10:15 | HO.ANESPROP2 ---
HPI - Anesthesia Eval Consult details Narrative: 53yo F for Upper Endoscopy and Colonoscopy PMFSH Active Problems Active Problems: All Active Problems UTI (urinary tract infection) (Acute) Liver mass (Acute) Surgical History Surgical History (Updated 01/04/24 @ 09:38 by Kelli Cohen) Hx of knee surgery Hx of section Social History Social History (Updated 01/04/24 @ 09:37 by Kelli Cohen) Household Members: Family Alcohol intake: current Alcohol intake frequency: holidays/special occasions only Patient Tobacco Use Status: Never used Tobacco Meds Allergies Allergy/AdvReac Type Severity Reaction Status Date / Time No Known Allergies Allergy Verified 04/21/24 11:48 [No Known Allergies*] Home Medications ?Medication ?Instructions ?Recorded ?Confirmed ?Last Taken ?Type atorvastatin 20 mg tablet 20 mg PO BEDTIME 01/04/24 01/04/24 Unknown History Exam Height,Weight and Vital Signs: Height 5 ft 6 in Weight 120.202 kg Assessment and Plan Assessment Anesthesia Assessment: Chart Reviewed
[2024-06-20 07:54] VITALS: BMI 40.2
[2024-06-20 08:10] VITALS: BP 132/85; PULSE 74; RESP 15; TEMP 36.3; O2SAT 96
[2024-06-20] MEDS: Lactated Ringers 1,000 ML 100 ML IVCONT (08:12)
--- NOTE | 2024-06-20 08:31 | HO.ANESPROP2 ---
COUNT INCLUDES THE [facility] Active Problems Active Problems: All Active Problems UTI (urinary tract infection) (Acute) Liver mass (Acute) Past Medical History Medical History (Updated 06/20/24 @ 07:50 by Jayne Winston, RN) GERD (gastroesophageal reflux disease) Elevated cholesterol Surgical History Surgical History Hx of knee surgery Hx of section Social History Social History (Updated 01/04/24 @ 09:37 by Kelli Cohen) Household Members: Family Alcohol intake: current Alcohol intake frequency: holidays/special occasions only Patient Tobacco Use Status: Current someday Tobacco user Tobacco use type: Cigarette Use of substances other than those prescribed or required for medical reasons: No Are you DNR?: No Advance Directives: No Advance Directives Information Provided: Yes Meds Allergies Allergy/AdvReac Type Severity Reaction Status Date / Time No Known Allergies Allergy Verified 06/20/24 07:53 [No Known Allergies*] Active Medications: Current Medications Lactated Ringer's (Lr) 1,000 mls @ 100 mls/hr IVCONT .Q10H JESSICA Last Admin: 06/20/24 08:12 Dose: 100 mls/hr Home Medications ?Medication ?Instructions ?Recorded ?Confirmed ?Last Taken ?Type atorvastatin 20 mg tablet 20 mg PO BEDTIME 01/04/24 06/20/24 Unknown History omeprazole 20 mg capsule,delayed 20 mg PO DAILY 06/20/24 06/20/24 Unknown History release Exam Height,Weight and Vital Signs: Height 5 ft 6 in Weight 112.945 kg Last Vital Signs Temp 97.3 F 06/20/24 08:10 Pulse 74 06/20/24 08:10 Resp 15 06/20/24 08:10 BP 132/85 06/20/24 08:10 Pulse Ox 96 06/20/24 08:10 O2 Del Method Room Air 06/20/24 08:10 Airway Mallampati Class: II TM Dist: >3cm Neck ROM: Full Heart: RRR Lungs: CTA Assessment and Plan Assessment Anesthesia Assessment: Anesthesia Plan Discussed and Chart Reviewed Final Anesthetic Review NPO: Yes ASA Class: II Final Preanesthetic Review: Meds/Allgs Chart Reviewed, Consent Obtained/Reviewed and Anes Risks/Benef Reviewed Patient Risk: Low Procedure Risk: Low Anesthetic Plan Anesthetic Plan: MAC: Disposition: Standard PACU
--- NOTE | 2024-06-20 08:39 | MHC.SHP ---
Pre-Procedural Eval Section A - 24 Hr Update-Section A only Date of Service: 06/20/24 The patient is an INPATIENT: No The patient has been examined within 24 hours of the surgical procedure. The History & Physical has been completed within 30 days and I have reviewed it.: No Section B - Complete if H&P > 30 days Chief Complaint: Screening, GERD Relevant Family History (Specify if Yes): Yes Relevant Social History: None Present Medications: see Short Stay Collaborative assessment Medical History: Significant History (GERD, elevated cholestrol) History of Previous Operations: Relevant previous surgery/procedure and date(s) (Hx of knee surgery Hx of section) Allergies: Allergies Allergy/AdvReac Type Severity Reaction Status Date / Time No Known Allergies Allergy Verified 06/20/24 07:53 [No Known Allergies*] Review of Systems Sugical H&P ROS: Negative: Constitution, Cardiovascular, Respiratory and Gastrointestinal Exam Surgical H&P Exam: Normal: Heart, Normal: Lungs, Normal: Extremities and Normal: Abdomen Plan Diagnosis/Plan: Unchanged I have reviewed the history and physical and performed a pertinent physical examination on my patient. No changes have occurred unless specified. Time Spent With Patient Time: Total time managing care of this patient today ____ minutes.
--- NOTE | 2024-06-20 09:07 | HO.ANESPROP2 ---
[facility] Active Problems Active Problems: All Active Problems UTI (urinary tract infection) (Acute) Liver mass (Acute) Past Medical History Medical History GERD (gastroesophageal reflux disease) Elevated cholesterol Functional capacity: independent ambulation Patient : No Family History Family history of problems with anesthesia: No Surgical History Surgical History Hx of knee surgery Hx of section History of Problems with Anesthesia: No Social History Social History Household Members: Family Alcohol intake: current Alcohol intake frequency: holidays/special occasions only Patient Tobacco Use Status: Current someday Tobacco user Tobacco use type: Cigarette Use of substances other than those prescribed or required for medical reasons: No Are you DNR?: No Advance Directives: No Advance Directives Information Provided: Yes Meds Allergies Allergy/AdvReac Type Severity Reaction Status Date / Time No Known Allergies Allergy Verified 06/20/24 07:53 [No Known Allergies*] Active Medications: Current Medications Lactated Ringer's (Lr) 1,000 mls @ 100 mls/hr IVCONT .Q10H JESSICA Last Admin: 06/20/24 08:12 Dose: 100 mls/hr Naloxone HCl (Naloxone Hcl 0.4 Mg/Ml Vial) 0.04 mg IVPUSH Q5M PRN PRN Reason: Excessive sedation or RR < 8 Home Medications ?Medication ?Instructions ?Recorded ?Confirmed ?Last Taken ?Type atorvastatin 20 mg tablet 20 mg PO BEDTIME 01/04/24 06/20/24 Unknown History omeprazole 20 mg capsule,delayed 20 mg PO DAILY 06/20/24 06/20/24 Unknown History release Exam Height,Weight and Vital Signs: Height 5 ft 6 in Weight 112.945 kg Last Vital Signs Temp 97.3 F 06/20/24 08:10 Pulse 74 06/20/24 08:10 Resp 15 06/20/24 08:10 BP 132/85 06/20/24 08:10 Pulse Ox 96 06/20/24 08:10 O2 Del Method Room Air 06/20/24 08:10 Airway Mallampati Class: II TM Dist: >3cm Neck ROM: Full Heart: RRR Lungs: CTA Assessment and Plan Assessment Anesthesia Assessment: Anesthesia Plan Discussed and Chart Reviewed Final Anesthetic Review Family History of Problems with Anesthesia: No History of Problems with Anesthesia: No ASA Class: II Final Preanesthetic Review: Meds/Allgs Chart Reviewed, Consent Obtained/Reviewed and Anes Risks/Benef Reviewed Patient Risk: Low Procedure Risk: Low Anesthetic Plan Anesthetic Plan: MAC: Disposition: Standard PACU
--- NOTE | 2024-06-20 09:46 | HO.OPN-COLON ---
Colonoscopy Operative Note Operative Note Date of Service: 06/20/24 Narrative: FLEXIBLE TRANSORAL UPPER GASTROINTESTINAL ENDOSCOPY WITH BIOPSIES AND COLONOSCOPY TILL CECUM WITH BIOPSIES, SNARE POLYPECTOMY AND HEMOCLIP PLACEMENT Pre-op diagnosis: Colon cancer screening, GERD Post-op diagnosis: Gastritis, GERD, Colon Polyps, Diverticulosis Endoscopist:? Karishma Amezquita MD Anesthesia:?MAC UPPER ENDOSCOPY Consent: Indications for the procedure and potential complications of bleeding, perforation, reaction to medications and missed diagnosis were discussed with the patient and informed consent was obtained. Instrument: Olympus GIF H 190 mid size upper endoscope Monitoring: Vital signs and clinical assessment, continuous EKG monitoring, Pulse oximetry, Carbon Dioxide monitoring and blood pressure monitoring were done throughout the procedure. Procedure: The patient was placed in the left lateral decubitis position and pre-procedure medications were administered and a bite block was placed. The endoscope was inserted into the mouth and advanced under direct vision to the third part of duodenum. A careful inspection was made as the upper endoscope was withdrawn including a retroflexed examination of the proximal stomach; Findings and interventions are described below. Findings: Larynx: Normal Esophagus: GE junction at 35 cms. Irregular Z line - biopsied to check for Cabrera's. Stomach: Mild gastric erythema - biopsies were obtained from the antrum to check for H pylori. Grade 2 flap valve on retroflexed examination of the cardia. Duodenum: Normal bulb and descending duodenum Intervention: Biopsies as noted above COLONOSCOPY PROCEDURE NOTE Instrument: Olympus PCF H 190 L variable stiffness pediatric colonoscope Monitoring: Vital signs and clinical assessment, intermittent blood pressure monitoring, continuous EKG monitoring, Pulse oximetry and Carbon Dioxide monitoring were done throughout the procedure. Please see anesthesia flowsheet. Colon withdrawl time was 25 minutes. Procedure: The patient was placed in the left lateral decubitis position and pre-procedure medications were administered. After a digital rectal examination of the ano-rectum, the video colonoscope was inserted into the rectum and advanced through the colon to the cecum. The colonoscope was slowly withdrawn in a retrograde panoramic fashion and the colon mucosa was carefully examined including a retroflexed view of the rectum. Findings and interventions are described below. Procedure Difficulty: without difficulty Findings: Terminal Ileum: Not evaluated Cecum: A 7-8 mm sessile polyp - removed with a hot snare Ascending Colon: A 7-8 mm flat polyp - raised with 2 cc of [place] and removed with a stiff hot snare. Polypectomy site was closed with 1 hemoclip Transverse Colon: Normal Descending Colon: Moderate diverticulosis Sigmoid Colon: A 4-5 mm diminutive appearing polyp - removed with a cold biopsy. Severe diverticulosis with luminal narrowing Rectum: Normal Ano-rectum: Hypertrophied anal papillae Colon preparation: Good after some irrigation. [place] Bowel Preparation Scale Right colon; 2 Transverse colon: 2 Left colon; 2 (0 = Unprepared colon segment with mucosa not seen due to solid stool that cannot be cleared. 1 = Portion of mucosa of the colon segment seen, but other areas of the colon segment not well seen due to staining, residual stool and/or opaque liquid. 2 = Minor amount of residual staining, small fragments of stool and/or opaque liquid, but mucosa of colon segment seen well. 3 = Entire mucosa of colon segment seen well with no residual staining, small fragments of stool or opaque liquid) Impression and Post Procedure Diagnosis: Endoscopy Findings: ESOPHAGUS: Irregular Z line - biopsied to check for Cabrera's. STOMACH: Mild gastritis DUODENUM: Normal Colonoscopy Findings: Three small polyps were removed Moderate to severe diverticulosis seen in the left colon Plan: Pt has a FU appointment on 07/01/23 with Nubia Flood NP Repeat Colonoscopy in 3-5 years if polyps are adenomatous and 10 year if polyps are hyperplastic. Above findings were reviewed with the patient and relevant handouts were given and the discharge area.
--- NOTE | 2024-06-20 10:06 | HO.POSTANES ---
Post Anesthesia Evaluation Post Anesthesia Evaluation Vital Signs: Vital Signs Temp Pulse Resp BP Pulse Ox O2 Del Method 06/20/24 08:10 97.3 F 74 15 132/85 96 Room Air
[2024-06-20 10:26] VITALS: BP 82/45; PULSE 74; RESP 16; TEMP 36.2; O2SAT 93
[2024-06-20 10:41] VITALS: BP 104/50; PULSE 59; RESP 16; O2SAT 95
[2024-06-20 10:56] VITALS: BP 127/75; PULSE 59; RESP 16; TEMP 36.2; O2SAT 97
--- NOTE | 2024-06-20 11:07 | HO.POSTANES ---
Post Anesthesia Evaluation Post Anesthesia Evaluation Date of Service: 06/20/24 Vital Signs: Vital Signs Temp Pulse Resp BP Pulse Ox O2 Del Method 06/20/24 10:56 97.2 F 59 16 127/75 97 Room Air 06/20/24 10:41 59 16 104/50 L 95 Room Air 06/20/24 10:26 97.2 F 74 16 82/45 L 93 Room Air 06/20/24 08:10 97.3 F 74 15 132/85 96 Room Air Anesthesia: Monitored Mental Status: Awake Pain Control: Satisfactory Nausea/Vomiting: None Hydration: Adequate Anesthesia-Related Issues: No Anes. Related Issues
== END 2024-06-20 11:13 | disposition home or self-care (01) ==
PROVIDERS: PCP Internal Medicine; Visit Provider Internal Medicine Gastroenterology
PROC: (CPT 45385; principal; 2024-06-20 09:10)
DX: Z12.11 Encounter for screening for malignant neoplasm of colon (principal); D12.0 Benign neoplasm of cecum; K56.2 Volvulus; K62.89 Other specified diseases of anus and rectum; K57.30 Diverticulosis of large intestine without perforation or abscess without bleeding; Z80.0 Family history of malignant neoplasm of digestive organs; K29.70 Gastritis, unspecified, without bleeding; K31.A19 Gastric intestinal metaplasia without dysplasia, unspecified site; K22.9 Disease of esophagus, unspecified; K21.9 Gastro-esophageal reflux disease without esophagitis; E78.00 Pure hypercholesterolemia, unspecified; Z79.899 Other long term (current) drug therapy; Z79.02 Long term (current) use of antithrombotics/antiplatelets
CPT/HCPCS: 45385; 45381; 45380; 43239; 88305; 88342; J2003; J2704

== ENCOUNTER → 2024-06-20 07:31 | Outpatient (BNV) | payer OTHER, SELFPAY | PROVIDERS: PCP Internal Medicine; Visit Provider Internal Medicine Gastroenterology | DX: Z12.11 Encounter for screening for malignant neoplasm of colon (principal); D12.0 Benign neoplasm of cecum; K63.5 Polyp of colon; K57.90 Diverticulosis of intestine, part unspecified, without perforation or abscess without bleeding; K62.89 Other specified diseases of anus and rectum; K21.9 Gastro-esophageal reflux disease without esophagitis; K29.70 Gastritis, unspecified, without bleeding; K22.70 Barrett's esophagus without dysplasia | CPT/HCPCS: 43239; 45380; 45381; 45385 ==

== ENCOUNTER 2024-07-01 08:03 | Outpatient (AMB) | payer OTHER, SELFPAY ==
--- NOTE | 2024-07-01 08:08 | A.OFFVIS_ITS ---
Vital Signs 07/01/24 08:12 Height 5 ft 6 in Weight 251 lb 5.231 oz BMI 40.6 BP 126/79 Blood Pressure Location Lt brachial Position Sitting Pulse 94 Intake Visit Reasons: S/P double; Dr. Amezquita Intake Note: Griselda presents in the office as a follow up EGD / COLO. CC: She states that she is not having any concerns since the procedures just here for the results. Color Buffer Required: No Allergies No Known Allergies [No Known Allergies*] Allergy (Verified 07/01/24 08:09) HPI HPI S/P double; Dr. Amezquita: Details: LAST VISIT Screen for colon cancer GERD (gastroesophageal reflux disease) History of diverticulitis of colon Plan Patient denies any cardiac or respiratory symptoms.? Patient will continue with omeprazole. Avoid dietary triggers late night snacking. Staying upright for minimum 3 hours after meals discussed with patient. Patient will be sent for upper endoscopy to rule out gastritis, duodenitis, esophagitis, gastric or peptic ulcer, Cabrera's. Denies any issues with anesthesia in the past.? Denies any history of sleep apnea.? No history infectious diseases in the past or present.? Not on any anticoagulation therapy.? Family history of CRC..? Patient denies melena, hematochezia, unintentional weight loss or ribbon like stools.? Discussed at length the pre-procedure,? prep, diet & medications as well as what to expect prior, during and after the procedure.?? Stressed the importance of good bowel prep.? Recommended the use of Vaseline or Calmoseptine OTC & baby wipes with bowel movements to promote comfort.? ?Patient verbalizes understanding and agrees to plan of care.? She was given the opportunity to ask questions and all questions answered.? We will see her after the procedure.? Medications New bisacodyl (Dulcolax (bisacodyl)) take 4 tabs at noon the day before your colonoscopy 20 mg (4 x 5 mg) PO ONCE 1 day 4 tabs 0RF Z12.11 polyethylene glycol 3350 (Miralax) As directed by gastroenterology department at [facility] 238 grams PO ONCE 238 grams 0RF Z12.11 omeprazole 20 mg PO DAILY 90 caps 3RF UPPER ENDOSCOPY AND COLONOSCOPY Endoscopy Findings: Larynx: Normal Esophagus: GE junction at 35 cms. Irregular Z line - biopsied to check for Cabrera's. Stomach: Mild gastric erythema - biopsies were obtained from the antrum to check for H pylori. Grade 2 flap valve on retroflexed examination of the cardia. Duodenum: Normal bulb and descending duodenum Intervention: Biopsies as noted above Colonoscopy Findings: Terminal Ileum: Not evaluated Cecum: A 7-8 mm sessile polyp - removed with a hot snare Ascending Colon: A 7-8 mm flat polyp - raised with 2 cc of [place] and removed with a stiff hot snare. Polypectomy site was closed with 1 hemoclip Transverse Colon: Normal Descending Colon: Moderate diverticulosis Sigmoid Colon: A 4-5 mm diminutive appearing polyp - removed with a cold biopsy. Severe diverticulosis with luminal narrowing Rectum: Normal Ano-rectum: Hypertrophied anal papillae Colon preparation: Good after some irrigation. [place] Bowel Preparation Scale Right colon; 2 Transverse colon: 2 Left colon; 2 (0 = Unprepared colon segment with mucosa not seen due to solid stool that cannot be cleared. 1 = Portion of mucosa of the colon segment seen, but other areas of the colon segment not well seen due to staining, residual stool and/or opaque liquid. 2 = Minor amount of residual staining, small fragments of stool and/or opaque liquid, but mucosa of colon segment seen well. 3 = Entire mucosa of colon segment seen well with no residual staining, small fragments of stool or opaque liquid) Impression and Post Procedure Diagnosis: Endoscopy Findings: ESOPHAGUS: Irregular Z line - biopsied to check for Cabrera's. STOMACH: Mild gastritis DUODENUM: Normal Colonoscopy Findings: Three small polyps were removed Moderate to severe diverticulosis seen in the left colon Plan: Repeat Colonoscopy in 3-5 years if polyps are adenomatous and 10 year if polyps are hyperplastic. Above findings were reviewed with the patient and relevant handouts were given and the discharge area. PATHOLOGY RESULTS Addendum #1 Immunostain for H. pylori on B is negative. Control stains appropriately. Additional deeper levels on C show colonic mucosa with no specific change; no adenomatous dysplasia. Electronically Signed By: Alida Forbes 06/26/24 1958 Diagnosis A. Gastric antrum, biopsy: Gastric antral mucosa (1 piece) with reactive changes and minimal chronic inactive gastritis; negative for intestinal metaplasia and dysplasia. B. Gastroesophageal junction, biopsy: Squamocolumnar mucosa, and gastric-type mucosa with reactive changes, with mild inflammation and focal intestinal metaplasia; negative for dysplasia (see comment). C. Colon, ascending, polyp: Colonic mucosa with no specific change on initial levels (see comment). D. Colon, cecal polyp: Tubular adenoma; negative for high-grade dysplasia and carcinoma. E. Colon, sigmoid, polyp, biopsy: Hyperplastic polyp. Comment: (A): Immunostain for H. pylori pending; addendum to follow. 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 Clinical and endoscopic correlation is advised. (C): Additional deeper tissue levels pending; addendum to follow TODAY'S VISIT Patient is here today for follow-up and to discuss upper endoscopy and colonoscopy results. Patient denies any ill effects from the prep, anesthesia or procedure itself. Patient denies melena, hematochezia, unintentional weight loss or ribbon like stools. Denies dyspepsia, dysphagia or odynophagia. Patient reports that she has been taking omeprazole and her symptoms of acid reflux have been suppressed. One tubular adenoma found, repeat colonoscopy in 5 years. Patient reports family history of CRC. Patient reports that her grandmother was diagnosed with rectal cancer in early 60s. Patient reports to be feeling well and denies any GI concerning symptoms. Upper endoscopy and colonoscopy results including biopsy results discussed with patient [facility] Medical History (Updated 07/01/24 @ 08:38 by Henna Flood [facility]) Family history of colorectal cancer GERD (gastroesophageal reflux disease) Elevated cholesterol Surgical History Hx of colonoscopy History of esophagogastroduodenoscopy (EGD) Hx of knee surgery Hx of section Social History Household Members: Family Alcohol intake: current Alcohol intake frequency: holidays/special occasions only Patient Tobacco Use Status: Current someday Tobacco user Tobacco use type: Cigarette Review of Systems Const Denies weight gain and Denies weight loss ENT Reports no additional complaints, Denies dysphagia and Denies odynophagia Card Reports no additional complaints Resp Reports no additional complaints GI Denies abdominal pain, Denies belching, Denies melena, Denies bloating, Denies change in bowel habits, Denies dysphagia, Denies excessive flatus, Denies dyspepsia, Denies heartburn, Denies diarrhea, Denies loose stools, Denies nausea, Denies odynophagia and Denies vomiting Musc Reports no additional complaints Neuro Reports no additional complaints Psych Reports no additional complaints Endo Reports no additional complaints Physical Exam Vital Signs: Last Vital Signs Pulse 94 07/01/24 08:12 BP 126/79 07/01/24 08:12 BMI result Body Mass Index 40.6 Const General: healthy appearing, no acute distress and well developed Nutritional Appearance: well nourished Orientation/consciousness: patient oriented x3 Resp Effort & Inspection: normal respiratory effort, able to speak in complete sentences, no tracheal deviation and symmetric chest movement Auscultation: clear to auscultation bilaterally Cardio Rate: regular rate GI Inspection: Yes normal to inspection and No distended Palpation (GI): Soft to palpation, not firm, nontender and No hepatosplenomegaly present Auscultation: normal bowel sounds General: Yes no CVA tenderness Back/Spine/Pelvis Back: no CVA tenderness Skin General skin exam: elasticity normal, turgor normal and dry skin Neuro General: patient oriented x3 Psych Appearance: grossly normal Mental Status: mental status grossly normal Assessment & Plan Assessment & Plan (1) Family history of colorectal cancer: Code(s): Z80.0 - Family history of malignant neoplasm of digestive organs Category: Medical (2) Screen for colon cancer: Code(s): Z12.11 - Encounter for screening for malignant neoplasm of colon (3) GERD (gastroesophageal reflux disease): Code(s): K21.9 - Gastro-esophageal reflux disease without esophagitis Qualifiers: Esophagitis presence: esophagitis presence not specified Qualified Code(s): K21.9 - Gastro-esophageal reflux disease without esophagitis (4) History of diverticulitis of colon: Code(s): Z87.19 - Personal history of other diseases of the digestive system Plan Continue avoiding dietary triggers and late night snacking. Staying upright for minimum 3 hours after meals discussed with patient. Patient will continue on omeprazole. Colonoscopy in 5 years due to 1 tubular adenoma in family history of CRC. Patient will follow-up in our office as needed. She is agreeable to this plan and verbalizes understanding of instructions. She was given the opportunity to ask questions and all questions answered. Thank you for allowing me to participate in her care Medications: New omeprazole 20 mg PO DAILY 90 caps 3RF Coding Level of Care Code Est Pt Level 3 (77975) Diagnoses Family history of colorectal cancer Z80.0 Screen for colon cancer Z12.11 Gastroesophageal reflux disease, unspecified whether esophagitis present K21.9 Esophagitis presence: esophagitis presence not specified History of diverticulitis of colon Z87.19 Time Spent (min) 25 Comment 15 minutes spent with patient and additional 10 minutes spent reviewing her records
[2024-07-01 08:12] VITALS: BP 126/79; PULSE 94; BMI 40.6
== END 2024-07-01 12:34 | disposition home or self-care (01) ==
PROVIDERS: PCP Internal Medicine; Visit Provider Nurse Practitioner Family
DX: D12.0 Benign neoplasm of cecum (principal); K57.90 Diverticulosis of intestine, part unspecified, without perforation or abscess without bleeding; K21.9 Gastro-esophageal reflux disease without esophagitis; Z80.0 Family history of malignant neoplasm of digestive organs
CPT/HCPCS: 99213

== ENCOUNTER 2024-11-14 13:25 | Outpatient (REF) | payer OTHER, SELFPAY | END 2024-11-14 13:26 | disposition home or self-care (01) | LOC: HO.MAMMO 13:25 | PROVIDERS: PCP Internal Medicine; Visit Provider Internal Medicine | DX: Z12.31 Encounter for screening mammogram for malignant neoplasm of breast (principal) | CPT/HCPCS: 77063; 77067 ==

== ENCOUNTER → 2024-11-14 13:30 | Outpatient (BNV) | payer OTHER, SELFPAY | PROVIDERS: PCP Internal Medicine; Visit Provider Internal Medicine | DX: Z12.31 Encounter for screening mammogram for malignant neoplasm of breast (principal) | CPT/HCPCS: 77063; 77067 ==

== ENCOUNTER 2025-05-29 14:39 | Outpatient (AMB) | payer OTHER, SELFPAY ==
--- NOTE | 2025-05-29 14:49 | A.OFFPC_ITS ---
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: No Accompanied by: Self / Same As Patient Allergies No Known Allergies (No Known Allergies*) Allergy (Verified 05/29/25 14:49) Medication List - Last Reconciled 05/29/25 by MAHESH Fisher atorvastatin 20 mg PO BEDTIME multivitamin 1 tab PO DAILY omega 9-enl-jrs-fish oil 1,000 (120-180) mg (Fish Oil) 1 cap PO BID omeprazole 20 mg PO DAILY Tobacco use date assessed: 05/29/25 Dental Screening Dental Screen Date: 05/29/25 Did you have a dental visit in the last 12 months?: Yes Did you have a dental problem in the last 6 months where you did not have access to dental care?: No Was dental information given to patient?: Patient has dentist HPI HPI Comments History of Present Illness Details 54-year-old female with history of hyper lipidemia, GERD, obesity, liver mass presenting to the office today to establish care and for annual physical exam. She is a former patient of Dr. Valencia, last seen about 1.5 years ago. Lives by herself and feels safe at home (2 dogs as well). 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 Social alcohol. History of cigarettes, smoked several years, quit more than 15 years. No drugs. Class 2 obesity-BMI 39.2. Has lost significant weight over the last year, >30 pounds noted in the offices. She is using subcut semaglutide weekly, prescribed by [facility]. Not currently with formal exercise. GERD- on omeprazole 20mg daily. Concern for possible Barretts, follow with endo, undergoing endo. HLD- has been out of her aotrvastatin 20mg bedtime for several months. Concern for liver mass- incidentally seen hypodensity of posterior segment of right lobe [address] abd/pelvis 01/15- not well visualized. Follow up MRI showed hepatic steatosis, no other concerning lesions Concerns: Neck, shoulder and thoracic back pain- attributes to large breasts Health Maintenane: Last mammo 10/2024, 1 year f/up Last colo 05/2024, Dr. Amezquita. 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 No sore throat, nasal congestion, rhinorrhea, sinus pain, ear pain. No hearing loss Neck - no adenopathy Cardiovascular: No chest pain, palpitations, or leg edema Respiratory: No shortness of breath, wheezing, cough Breast: No pain, palpable lumps, nipple inversion GI: No dysphagia, odynophagia, globus sensation. No abdominal pain, nausea, vomiting, diarrhea, constipation, melena, hematochezia : No dysuria, hematuria, increased urinary frequency, decreased urinary output. 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 No AH/VH. No SI/HI Skin: No rashes or lesions EXAM: Constitutional - Awake and Alert, No apparent distress Eyes - PERRLA, EOMI. Anicteric Ears - external ears normal, canals clear, TMs intact and pearly hernandez with good cone of light Nose- septum midline, nares clear, no sinus tenderness Mouth/throat- mucosa moist, tongue and uvula midline, no erythema/edema or tonsillar adenopathy. Neck-trachea midline, thyroid symmetric without palpable nodules, no adenopathy Cardiovascular - S1S2, RRR, No edema Respiratory - Normal lung expansion, Normal respiratory effort, No respiratory distress, CTA bilaterally Breasts- macromastia Gastrointestinal - NT / ND; +BS; No rebound or guarding - No CVA tenderness Extremities - no calf tenderness bilaterally, no swelling Musculoskeletal - Normal inspection, normal ROM Skin - Warm/Dry, no concerning lesions Neurological - Alert & oriented x3, CN II-XII in tact, 5/5 strength BUE and BLE, 2+ patellar reflexes, sensation intact Psychological - Appropriate affect [facility] Medical History (Updated 05/30/25 @ 13:18 by MAHESH Fisher) HLD (hyperlipidemia) Family history of colorectal cancer GERD (gastroesophageal reflux disease) Elevated cholesterol Surgical History Hx of colonoscopy History of esophagogastroduodenoscopy (EGD) Hx of knee surgery Hx of section Family History Maternal Grandmother Colon cancer Father Coronary artery disease PAD (peripheral artery disease) Mother Breast cancer Maternal Grandfather Myocardial infarct Social History Household Members: Family Housing: House Alcohol intake: current Alcohol intake frequency: holidays/special occasions only Patient Tobacco Use Status: Former Tobacco user Tobacco use type: Cigarette Years Smoked: 2 years e-Cigarette/Vaping Use: Never Used Current occupational status: employed Current occupation: [employer] Questionnaire AUDIT C Alcohol Use Questionnaire (AUDIT-C) 1. How often do you have a drink containing alcohol?: Monthly or less 2. How many drinks containing alcohol do you have on a typical day when you are drinking?: 1 or 2 3. How often do you have six or more drinks on one occasion?: Never Total Score: 1 Physical exam (Primary Care) Vital Signs: Last Vital Signs Temp 97.3 F 05/29/25 14:50 Pulse 76 05/29/25 14:50 Resp 16 05/29/25 14:50 BP 130/80 05/29/25 14:50 Pulse Ox 97 05/29/25 14:50 Oxygen Delivery Method Room Air 05/29/25 14:50 BMI result Body Mass Index 39.2 Tobacco/Smoking Status: Tobacco use Status Tobacco use date assessed 05/29/25 05/29/25 14:55 Patient Tobacco Use Status Former Tobacco user 05/29/25 14:55 Tobacco use type Cigarette 05/29/25 14:55 e-Cigarette/Vaping Use Never Used 05/29/25 14:55 Coding Level of Care Code New Pt Prev Care 40-64y(12496) Diagnoses Routine medical exam Z00.00 Thoracic spine pain M54.6 Cervical spine pain M54.2 Macromastia N62 Family history of colorectal cancer Z80.0 HLD (hyperlipidemia) E78.5 Assessment & Plan Assessment & Plan (1) Routine medical exam: Code(s): Z00.00 - Encounter for general adult medical examination without abnormal findings Category: Medical Plan: 54 year old female here for annual physical and to establish care. Plan as below (2) Thoracic spine pain: Code(s): M54.6 - Pain in thoracic spine Category: Medical Plan: Suspect 2/2 macromastia. Interested in breaat reduction. Trial PT first and reevaluate. (3) Cervical spine pain: Code(s): M54.2 - Cervicalgia Category: Medical Plan: As above (4) Macromastia: Code(s): N62 - Hypertrophy of breast Category: Medical Plan: As above (5) Family history of colorectal cancer: Code(s): Z80.0 - Family history of malignant neoplasm of digestive organs Category: Medical Plan: Continue following with gastroenterology with colo q5y (6) HLD (hyperlipidemia): Code(s): E78.5 - Hyperlipidemia, unspecified Category: Medical Plan: Refill of atorvastatin 20mg nightly prescribed. Advised to wait 4-5 weeks before checking lipids. Diet low in satruated fats and highly process foods Plan Routine screening labs as ordered below Continue with screening mammograms, Pap smears- referred, colonoscopies Sun protection, skin self checks- if interested in derm refill will contact office Annual eye exams Dental exams twice yearly Wear seat belt in car Recommend regular exercise and healthy diet Follow up in 1 year for annual physical Orders: Orders Basic Metabolic Panel 4 Weeks Z00.00 - Encounter for general adult medical examination without abnormal findings Complete Blood Count Auto Diff 4 Weeks Z00.00 - Encounter for general adult medical examination without abnormal findings Hemoglobin A1c 4 Weeks Z00.00 - Encounter for general adult medical examination without abnormal findings TSH reflex Free T4 4 Weeks Z00.00 - Encounter for general adult medical examination without abnormal findings PT Evaluation and Treatment 05/29/25 M54.2 - Cervicalgia, M54.6 - Pain in thoracic spine, N62 - Hypertrophy of breast Lipid Panel 4 Weeks Z00.00 - Encounter for general adult medical examination without abnormal findings Liver Panel 4 Weeks Z00.00 - Encounter for general adult medical examination without abnormal findings Vitamin D 25-OH Total 4 Weeks Z00.00 - Encounter for general adult medical examination without abnormal findings Referrals JACK WINDER Referral Z12.4 - Encounter for screening for malignant neoplasm of cervix Medications: New atorvastatin 20 mg PO BEDTIME 90 tabs 1RF
[2025-05-29 14:50] VITALS: BP 130/80; PULSE 76; RESP 16; TEMP 36.3; O2SAT 97; BMI 39.2
== END 2025-05-29 15:21 | disposition home or self-care (01) ==
LOC: HO.HMCHD 14:39
PROVIDERS: Visit Provider Physician Assistant
DX: Z00.00 Encounter for general adult medical examination without abnormal findings (principal); M54.6 Pain in thoracic spine; M54.2 Cervicalgia; N62 Hypertrophy of breast; Z80.0 Family history of malignant neoplasm of digestive organs; E78.5 Hyperlipidemia, unspecified

== ENCOUNTER 2025-06-05 07:19 | Day surgery (SDC) | payer OTHER, SELFPAY ==
--- NOTE | 2025-06-02 14:44 | HO.ANESPROP2 ---
Documented by User: Anai Evans NP 06/02/25 14:45 HPI - Anesthesia Eval Consult details Narrative: 54yo F for Upper Endoscopy PMFSH Active Problems Active Problems: All Active Problems HLD (hyperlipidemia) (Acute) Macromastia (Acute) Thoracic spine pain (Acute) Cervical spine pain (Acute) Routine medical exam (Acute) Family history of colorectal cancer (Acute) UTI (urinary tract infection) (Acute) Past Medical History Medical History HLD (hyperlipidemia) Family history of colorectal cancer GERD (gastroesophageal reflux disease) Elevated cholesterol Family History Family History Maternal Grandmother Colon cancer Father Coronary artery disease PAD (peripheral artery disease) Mother Breast cancer Maternal Grandfather Myocardial infarct Family history of problems with anesthesia: No Surgical History Surgical History Hx of colonoscopy History of esophagogastroduodenoscopy (EGD) Hx of knee surgery Hx of section History of Problems with Anesthesia: No Social History Social History Household Members: Family Housing: House Alcohol intake: current Alcohol intake frequency: holidays/special occasions only Patient Tobacco Use Status: Former Tobacco user Tobacco use type: Cigarette Years Smoked: 2 years e-Cigarette/Vaping Use: Never Used Use of substances other than those prescribed or required for medical reasons: No Are you DNR?: No Advance Directives: No Advance Directives Information Provided: Yes Current occupational status: employed Current occupation: [employer] Allergies Allergy/AdvReac Type Severity Reaction Status Date / Time No Known Allergies (No Known Allergy Verified 06/05/25 07:32 Allergies*) Home Medications ?Medication ?Instructions ?Recorded ?Confirmed ?Last Taken ?Type multivitamin 1 tab PO DAILY 05/29/25 06/05/25 Unknown History omega 4-yqk-nkv-fish oil 1,000 mg 1 cap PO BID 05/29/25 06/05/25 Unknown History (120 mg-180 mg) capsule (Fish Oil) semaglutide (weight loss) 2.5 mg subcut QWEEK 06/03/25 06/05/25 05/28/25 History Assessment and Plan Assessment Anesthesia Assessment: Chart Reviewed Final Anesthetic Review Family History of Problems with Anesthesia: No History of Problems with Anesthesia: No Documented by User: Lottie Rivera MD 06/05/25 08:07 [facility] Past Medical History Medical History HLD (hyperlipidemia) Family history of colorectal cancer GERD (gastroesophageal reflux disease) Elevated cholesterol Family History Family History Maternal Grandmother Colon cancer Father Coronary artery disease PAD (peripheral artery disease) Mother Breast cancer Maternal Grandfather Myocardial infarct Surgical History Surgical History Hx of colonoscopy History of esophagogastroduodenoscopy (EGD) Hx of knee surgery Hx of section Social History Social History Household Members: Family Housing: House Alcohol intake: current Alcohol intake frequency: holidays/special occasions only Patient Tobacco Use Status: Former Tobacco user Tobacco use type: Cigarette Years Smoked: 2 years e-Cigarette/Vaping Use: Never Used Use of substances other than those prescribed or required for medical reasons: No Are you DNR?: No Advance Directives: No Advance Directives Information Provided: Yes Current occupational status: employed Current occupation: [employer] Allergies Allergy/AdvReac Type Severity Reaction Status Date / Time No Known Allergies (No Known Allergy Verified 06/05/25 07:32 Allergies*) Home Medications ?Medication ?Instructions ?Recorded ?Confirmed ?Last Taken ?Type multivitamin 1 tab PO DAILY 05/29/25 06/05/25 Unknown History omega 2-onu-kfg-fish oil 1,000 mg 1 cap PO BID 05/29/25 06/05/25 Unknown History (120 mg-180 mg) capsule (Fish Oil) semaglutide (weight loss) 2.5 mg subcut QWEEK 06/03/25 06/05/25 05/28/25 History Exam Airway Mallampati Class: II TM Dist: >3cm Neck ROM: Full Heart: rrr Lungs: cta Assessment and Plan Assessment Anesthesia Assessment: Anesthesia Plan Discussed Final Anesthetic Review NPO: Yes ASA Class: II Final Preanesthetic Review: No Changes in Pt Med Stat, Meds/Allgs Chart Reviewed, Consent Obtained/Reviewed and Anes Risks/Benef Reviewed Patient Risk: Intermediate Procedure Risk: Low Anesthetic Plan Anesthetic Plan: MAC: Disposition: Standard PACU
[2025-06-03 12:42] VITALS: BMI 40.6
--- NOTE | 2025-06-05 07:24 | MHC.SHP ---
Pre-Procedural Eval Section A - 24 Hr Update-Section A only Date of Service: 06/05/25 The patient is an INPATIENT: No The patient has been examined within 24 hours of the surgical procedure. 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 Relevant Family History (Specify if Yes): Yes Relevant Social History: Tobacco Use Present Medications: see Short Stay Collaborative assessment Medical History: Significant History (Family history of colorectal cancer GERD (gastroesophageal reflux disease) Elevated cholesterol) History of Previous Operations: Relevant previous surgery/procedure and date(s) (Hx of colonoscopy History of esophagogastroduodenoscopy (EGD) Hx of knee surgery Hx of section) Allergies: Allergies Allergy/AdvReac Type Severity Reaction Status Date / Time No Known Allergies (No Known Allergy Verified 05/29/25 14:49 Allergies*) Review of Systems Sugical H&P ROS: Negative: Constitution, Cardiovascular, Respiratory and Gastrointestinal Exam Surgical H&P Exam: Normal: Heart, Normal: Lungs, Normal: Extremities and Normal: Abdomen Plan Diagnosis/Plan: Unchanged I have reviewed the history and physical and performed a pertinent physical examination on my patient. No changes have occurred unless specified. Time Spent With Patient Time: Total time managing care of this patient today ____ minutes.
[2025-06-05 07:36] VITALS: BP 115/75; PULSE 68; RESP 15; TEMP 36.3; O2SAT 97; BMI 37.0
[2025-06-05] MEDS: Lactated Ringers 1,000 ML 100 ML IVCONT (07:48)
--- NOTE | 2025-06-05 08:46 | W.PM.OPN ---
Operative Note Operative Note Date of Service: 06/05/25 Narrative: FLEXIBLE TRANSORAL UPPER GASTROINTESTINAL ENDOSCOPY WITH BIOPSIES AND LABOY 3D Pre-op diagnosis: GERD, FU of Barretts esophagus Post-op diagnosis: Same Endoscopist:? Karishma Amezquita MD Anesthesia:?MAC UPPER ENDOSCOPY Consent: Indications for the procedure and potential complications of bleeding, perforation, reaction to medications and missed diagnosis were discussed with the patient and informed consent was obtained. Instrument: Olympus GIF H 190 mid size upper endoscope Monitoring: Vital signs and clinical assessment, continuous EKG monitoring, Pulse oximetry, Carbon Dioxide monitoring and blood pressure monitoring were done throughout the procedure. Procedure: The patient was placed in the left lateral decubitis position and pre-procedure medications were administered and a bite block was placed. The endoscope was inserted into the mouth and advanced under direct vision to the third part of duodenum. A careful inspection was made as the upper endoscope was withdrawn including a retroflexed examination of the proximal stomach; Findings and interventions are described below. Findings: Larynx: Normal Esophagus: GE junction at 35 cms. Irregular Z line - biopsies and samples obtained for histology and LABOY. No esophagitis noted Stomach: Mild gastric erythema - biopsies obtained from the antrum during previous EGD were negative for H pylori and intestinal metaplasia. Grade 2 flap valve on retroflexed examination of the cardia. Duodenum: Normal bulb and descending duodenum Intervention: Biopsies as noted above Impression and Post Procedure Diagnosis: Endoscopy Findings: ESOPHAGUS: Irregular Z line - biopsies and samples obtained for histology and LABOY. STOMACH: Antral gastritis DUODENUM: Normal Plan: Pt has a FU appointment on 07/14/25 with Nubia Flood NP. Above findings were reviewed with the patient and relevant handouts were given and the discharge area.
[2025-06-05 08:47] VITALS: BP 83/53; PULSE 80; RESP 16; TEMP 36.1; O2SAT 97
[2025-06-05 08:57] VITALS: BP 95/65; PULSE 88; RESP 12; O2SAT 96
[2025-06-05 09:12] VITALS: BP 108/66; PULSE 72; RESP 19; TEMP 36.1; O2SAT 98
== END 2025-06-05 09:39 | disposition home or self-care (01) ==
PROVIDERS: PCP Physician Assistant; Visit Provider Internal Medicine Gastroenterology
PROC: 0DJ08ZZ Inspection of Upper Intestinal Tract, Via Natural or Artificial Opening Endoscopic (ICD-10-PCS; CPT 43235; principal; 2025-06-05 08:30)
DX: K22.70 Barrett's esophagus without dysplasia (principal); K21.9 Gastro-esophageal reflux disease without esophagitis; Z87.19 Personal history of other diseases of the digestive system
CPT/HCPCS: 43239; 88305; 88313; J1596; J2003; J2704